=== PATIENT | female | born 1990 | race Caucasian/White ===

== ENCOUNTER 2020-06-01 15:30 | Inpatient (IN) ==
[2020-06-01] MEDS ORDERED: ONDANSETRON 4 MG/2 ML VIAL IV STA (16:21)
[2020-06-01] MEDS ORDERED: SODIUM CHLORIDE 0.9% 1,000 ML IV STA ×2 (16:21→18:04)
[2020-06-01] MEDS ORDERED: MORPHINE 4 MG/1 ML VIAL IV STA ×2 (16:21→17:40)
[2020-06-01 16:30] LABS: Hematocrit 22.9 VOL% (35.7-47.0); Hemoglobin 7.7 GM/DL (12.0-16.0); Immature Granulocytes % 0.4 %; Immature Granulocytes Absolute 0.01 #; Lymphocytes # 1.4 10*3/uL (1.4-4.0); Lymphocytes % 61.6 % (21.3-54.2); Mean Corpuscular HGB Conc 33.6 GM/DL (32-36); Mean Corpuscular Volume 90.9 FL (87-102); Mean Platelet Volume 9.6 FL (9.6-12.0); Red Blood Count 2.52 MC/CUMM (3.8-5.5); Red Cell Distribution Width 16.9 % (9.3-17.3); White Blood Count 2.2 T/CUMM (4-12)
[2020-06-01 16:32] LABS: Platelet Count 34 T/CUMM (130-400)
[2020-06-01 16:38] LABS: PT Patient Result 10.7 SECS (9.8-11.9); Partial Thromboplastin Time 27.1 SECS (23.9-33.8)
[2020-06-01 16:40] LABS: Albumin 3.6 G/DL (3.4-5.0); Bilirubin,Total 1.4 MG/DL (0.2-1.0); Calcium 8.9 MG/DL (8.5-10.1); Osmolality,Calculated 267.2 MOS/KG (273-304); Total Protein 7.3 G/DL (6.4-8.3)
[2020-06-01] MEDS ORDERED: cefTRIAXone 1,000 MG in SODIUM CHLORIDE 0.9% 100 ML IV STA (17:40)
[2020-06-01 18:07] LABS: Apearance,Urine CLEAR (Clear); Bacteria,Urine Occasional /HPF (Few); Bilirubin,Urine Negative (Negative); Blood, Urine Negative (Negative); Glucose,Urine (UA) Negative (Negative); Ketones,Urine Negative (Negative); Mucus,Urine Occasional /LPF (Occasional); Nitrite,Urine Negative (Negative); Protein,Urine Negative; RBC,Urine 1 /HPF (0-4); Squamous Epithelial Cell,Urine Occasional /HPF (0-10); Urine Color Yellow (Yellow); Urine Specific Gravity 1.013 (1.001-1.035); Urine Urobilinogen < 2.0 EU/DL (0.2-1.0); WBC,Urine 2 /HPF (0-6)
[2020-06-01 18:13] LABS: Barbiturates Screen,Urine Positive (Negative); Benzodiazepines Screen,Urine Negative (Negative); Cannabinoid Screen,Urine Negative (Negative); Opiate Screen,Urine Positive (Negative); Phencyclidine Screen,Urine Negative (Negative)
[2020-06-01 19:22] LABS: Hypochromasia 2+; Lymphocytes 72 % (20-55); Segmented Neutrophils 4 % (50-85); Total Cells Counted 100
[2020-06-01 19:23] LABS: Platelet Estimate Decreased; Poikilocytosis 2+
[2020-06-01] MEDS ORDERED: HYDROmorphone 2 MG/1 ML VIAL IV STA (20:01)
[2020-06-01] MEDS ORDERED: DEXTROSE 50% 25 GM/50 ML VIAL IV PRN (20:33)
[2020-06-01] MEDS ORDERED: PROMETHAZINE 25 MG TABLET PO PRN (20:33)
[2020-06-01] MEDS ORDERED: GLUCAGON 1 MG VIAL IM PRN (20:33)
[2020-06-01] MEDS ORDERED: SODIUM CHLORIDE 0.9% 1,000 ML IV PRN (20:37)
[2020-06-01] MEDS ORDERED: VANCOMYCIN INJ 1,000 MG in SODIUM CHLORIDE 0.9% 250 ML IV ONE (21:30)
[2020-06-01] MEDS ORDERED: CEFEPIME 1,000 MG VIAL ONE (21:51)
[2020-06-01] MEDS ORDERED: VANCOMYCIN 1,000 MG VIAL ONE (21:53)
[2020-06-01] MEDS: CEFEPIME 1,000 MG in SODIUM CHLORIDE 0.9% 100 ML IV SCH (22:10)
[2020-06-02] MEDS: HYDROmorphone 2 MG/1 ML VIAL IV PRN ×6 (00:04→21:33)
[2020-06-02] MEDS: SODIUM CHLORIDE 0.9% 1,000 ML IV SCH ×4 (00:05→22:19)
[2020-06-02] MEDS: ONDANSETRON 4 MG/2 ML VIAL IV PRN ×2 (00:52→16:38)
[2020-06-02] MEDS: CEFEPIME 1,000 MG in SODIUM CHLORIDE 0.9% 100 ML IV SCH ×4 (05:17→21:31)
[2020-06-02 07:44] LABS: Albumin 2.6 G/DL (3.4-5.0); Bilirubin,Total 1.2 MG/DL (0.2-1.0); Calcium 7.2 MG/DL (8.5-10.1); Osmolality,Calculated 270.8 MOS/KG (273-304)
[2020-06-02] MEDS: PANTOPRAZOLE 40 MG TABLET PO SCH (08:15)
[2020-06-02 08:32] LABS: Hematocrit 22.4 VOL% (35.7-47.0); Hemoglobin 7.5 GM/DL (12.0-16.0); Immature Granulocytes % 1.9 %; Immature Granulocytes Absolute 0.04 #; Lymphocytes # 0.8 10*3/uL (1.4-4.0); Mean Corpuscular HGB Conc 33.5 GM/DL (32-36); Mean Corpuscular Volume 92.9 FL (87-102); Mean Platelet Volume 8.8 FL (9.6-12.0); Monocytes % 58.8 % (1.7-12.7); Neutrophils % 2.3 % (38.7-73.9); Red Blood Count 2.41 MC/CUMM (3.8-5.5); Red Cell Distribution Width 16.2 % (9.3-17.3); White Blood Count 2.1 T/CUMM (4-12)
[2020-06-02 08:40] LABS: Platelet Count 17 T/CUMM (130-400)
[2020-06-02 08:49] LABS: Albumin 2.9 G/DL (3.4-5.0); Bilirubin,Total 1.4 MG/DL (0.2-1.0); Calcium 8.1 MG/DL (8.5-10.1); Total Protein 6.2 G/DL (6.4-8.3)
[2020-06-02 08:57] LABS: Atypical Lymphocytes Few; Hypochromasia 1+; Lymphocytes 51 % (20-55); Microcytosis Slight; Platelet Estimate Decreased; Segmented Neutrophils 2 % (50-85); Total Cells Counted 100
[2020-06-02] MEDS ORDERED: KETOROLAC 30 MG/1 ML VIAL IV ONE (09:01)
[2020-06-02] MEDS ORDERED: SODIUM CHLORIDE 0.9% 1,000 ML IV PRN ×3 (09:02→19:51)
[2020-06-02] MEDS: VANCOMYCIN INJ 1,750 MG in SODIUM CHLORIDE 0.9% 500 ML IV SCH ×2 (09:21→23:15)
[2020-06-02] MEDS: allopurinoL 300 MG TABLET PO SCH (10:00)
[2020-06-02] MEDS: KETOROLAC 30 MG/1 ML VIAL IV PRN ×2 (16:12→21:32)
[2020-06-02 17:39] LABS: CKMB % 8.6 %
[2020-06-02 17:41] LABS: Troponin I 19.1 NG/ML (0.00-0.045)
[2020-06-02 19:32] LABS: Hematocrit 25.1 VOL% (35.7-47.0); Hemoglobin 8.4 GM/DL (12.0-16.0); Immature Granulocytes % 1.4 %; Immature Granulocytes Absolute 0.03 #; Lymphocytes # 0.7 10*3/uL (1.4-4.0); Lymphocytes % 31.8 % (21.3-54.2); Mean Corpuscular HGB Conc 33.5 GM/DL (32-36); Mean Corpuscular Volume 91.3 FL (87-102); Monocytes % 63.5 % (1.7-12.7); Neutrophils % 3.3 % (38.7-73.9); Red Blood Count 2.75 MC/CUMM (3.8-5.5); Red Cell Distribution Width 15.6 % (9.3-17.3); White Blood Count 2.1 T/CUMM (4-12)
[2020-06-02 19:35] LABS: Platelet Count 36 T/CUMM (130-400)
[2020-06-02 20:29] LABS: Lymphocytes 50 % (20-55); Platelet Estimate Decreased; Segmented Neutrophils 10 % (50-85); Total Cells Counted 100
[2020-06-02 20:30] LABS: Anisocytosis 1+; Ovalocytes Few; Smudge Cells Few
[2020-06-02] MEDS: ACYCLOVIR 200 MG CAPSULE PO SCH (21:32)
[2020-06-03] MEDS: SODIUM CHLORIDE 0.9% 1,000 ML IV SCH ×3 (00:11→18:50)
[2020-06-03] MEDS: HYDROmorphone 2 MG/1 ML VIAL IV PRN ×4 (02:45→20:17)
[2020-06-03] MEDS: KETOROLAC 30 MG/1 ML VIAL IV PRN ×4 (02:45→20:17)
[2020-06-03 03:58] LABS: Hematocrit 27.8 VOL% (35.7-47.0); Hemoglobin 9.6 GM/DL (12.0-16.0); Immature Granulocytes % 2.2 %; Immature Granulocytes Absolute 0.04 #; Lymphocytes # 0.7 10*3/uL (1.4-4.0); Lymphocytes % 35.9 % (21.3-54.2); Mean Corpuscular HGB Conc 34.5 GM/DL (32-36); Mean Corpuscular Volume 88.5 FL (87-102); Mean Platelet Volume 11.2 FL (9.6-12.0); Monocytes % 58.7 % (1.7-12.7); Neutrophils % 3.2 % (38.7-73.9); Red Blood Count 3.14 MC/CUMM (3.8-5.5); Red Cell Distribution Width 16.1 % (9.3-17.3); White Blood Count 1.8 T/CUMM (4-12)
[2020-06-03] MEDS: CEFEPIME 1,000 MG in SODIUM CHLORIDE 0.9% 100 ML IV SCH ×2 (04:15→09:48)
[2020-06-03 04:32] LABS: Albumin 2.5 G/DL (3.4-5.0); Bilirubin,Total 1.1 MG/DL (0.2-1.0); Calcium 7.6 MG/DL (8.5-10.1); Osmolality,Calculated 272.8 MOS/KG (273-304); Total Protein 5.6 G/DL (6.4-8.3)
[2020-06-03 04:34] LABS: CKMB % 4.3 %
[2020-06-03 04:36] LABS: Troponin I 4.93 NG/ML (0.00-0.045)
[2020-06-03 04:42] LABS: Platelet Count 29 T/CUMM (130-400)
[2020-06-03 04:50] LABS: Lymphocytes 38 % (20-55); Platelet Estimate Decreased; Segmented Neutrophils 3 % (50-85); Total Cells Counted 100
[2020-06-03 04:51] LABS: Atypical Lymphocytes Few
[2020-06-03] MEDS: allopurinoL 300 MG TABLET PO SCH (08:19)
[2020-06-03] MEDS: METOPROLOL TARTRATE 25 MG TABLET PO SCH ×2 (08:19→20:17)
[2020-06-03] MEDS: ACYCLOVIR 200 MG CAPSULE PO SCH ×2 (08:20→20:18)
[2020-06-03] MEDS: PANTOPRAZOLE 40 MG TABLET PO SCH (08:20)
[2020-06-03] MEDS: POSACONAZOLE 300 MG PO SCH (08:21)
[2020-06-03] MEDS ORDERED: MAGNESIUM SULF RIDER 2 GM in PREMIX 1 EACH IV ONE (10:02)
[2020-06-03] MEDS ORDERED: POTASSIUM CHLORIDE 20 MEQ TABLET PO ONE (10:02)
[2020-06-03] MEDS ORDERED: NOREPINEPHRINE 8 MG in SODIUM CHLORIDE 0.9% 242 ML IV PRN (10:10)
[2020-06-03] MEDS: MEROPENEM 500 MG in SODIUM CHLORIDE 0.9% 100 ML IV SCH ×3 (10:29→22:45)
[2020-06-03] MEDS: VANCOMYCIN INJ 1,750 MG in SODIUM CHLORIDE 0.9% 500 ML IV SCH ×2 (10:40→21:45)
[2020-06-03] MEDS: DOCOSANOL 10% CREAM 2 GM TUBE TOP SCH ×3 (14:46→21:14)
[2020-06-03] MEDS: VANCOMYCIN INJ 2,000 MG in SODIUM CHLORIDE 0.9% 500 ML IV SCH (23:18)
[2020-06-04] MEDS: HYDROmorphone 2 MG/1 ML VIAL IV PRN ×4 (01:44→21:10)
[2020-06-04] MEDS: KETOROLAC 30 MG/1 ML VIAL IV PRN ×4 (01:45→21:09)
[2020-06-04 04:46] LABS: Hematocrit 26.3 VOL% (35.7-47.0); Hemoglobin 8.8 GM/DL (12.0-16.0); Lymphocytes # 0.5 10*3/uL (1.4-4.0); Lymphocytes % 38.1 % (21.3-54.2); Mean Corpuscular HGB Conc 33.5 GM/DL (32-36); Mean Corpuscular Volume 89.8 FL (87-102); Neutrophils % 7.9 % (38.7-73.9); Red Blood Count 2.93 MC/CUMM (3.8-5.5); Red Cell Distribution Width 16.5 % (9.3-17.3); White Blood Count 1.4 T/CUMM (4-12)
[2020-06-04 04:49] LABS: Platelet Count 21 T/CUMM (130-400)
[2020-06-04] MEDS ORDERED: SODIUM CHLORIDE 0.9% 1,000 ML IV PRN ×3 (05:10→12:10)
[2020-06-04 05:18] LABS: Albumin 2.1 G/DL (3.4-5.0); Bilirubin,Total 1.4 MG/DL (0.2-1.0); Calcium 7.2 MG/DL (8.5-10.1); Osmolality,Calculated 273.7 MOS/KG (273-304); Total Protein 5.2 G/DL (6.4-8.3)
[2020-06-04] MEDS: SODIUM CHLORIDE 0.9% 1,000 ML IV SCH ×4 (05:23→21:18)
[2020-06-04 05:37] LABS: Lymphocytes 44 % (20-55); Nucleated Red Blood Cells 1 (0-5); Segmented Neutrophils 8 % (50-85); Total Cells Counted 100
[2020-06-04 05:38] LABS: Hypochromasia 1+
[2020-06-04 05:39] LABS: Anisocytosis 1+; Atypical Lymphocytes Few; Microcytosis 1+; Platelet Estimate Decreased
[2020-06-04] MEDS: MEROPENEM 500 MG in SODIUM CHLORIDE 0.9% 100 ML IV SCH ×3 (05:40→16:41)
[2020-06-04] MEDS: DOCOSANOL 10% CREAM 2 GM TUBE TOP SCH ×5 (05:53→23:06)
[2020-06-04] MEDS: allopurinoL 300 MG TABLET PO SCH (08:39)
[2020-06-04] MEDS: PANTOPRAZOLE 40 MG TABLET PO SCH (08:39)
[2020-06-04] MEDS: ACYCLOVIR 200 MG CAPSULE PO SCH (08:39)
[2020-06-04] MEDS: METOPROLOL TARTRATE 25 MG TABLET PO SCH ×2 (08:39→21:12)
[2020-06-04] MEDS: POSACONAZOLE 300 MG PO SCH (08:46)
[2020-06-04 10:04] LABS: Hematocrit 28.3 VOL% (35.7-47.0); Hemoglobin 9.5 GM/DL (12.0-16.0)
[2020-06-04] MEDS: VANCOMYCIN INJ 2,000 MG in SODIUM CHLORIDE 0.9% 500 ML IV SCH ×2 (10:06→23:07)
[2020-06-04] MEDS ORDERED: FUROSEMIDE 40 MG/4 ML VIAL IV ONE (11:04)
[2020-06-04 13:02] LABS: Apearance,Urine CLEAR (Clear); Bacteria,Urine Occasional /HPF (Few); Bilirubin,Urine Negative (Negative); Blood, Urine Moderate mg/dL (Negative); Glucose,Urine (UA) Negative (Negative); Ketones,Urine Negative (Negative); Mucus,Urine Occasional /LPF (Occasional); Nitrite,Urine Negative (Negative); Protein,Urine Negative; RBC,Urine 4 /HPF (0-4); Squamous Epithelial Cell,Urine Occasional /HPF (0-10); Urine Color Straw (Yellow); Urine Specific Gravity 1.003 (1.001-1.035); Urine Urobilinogen < 2.0 EU/DL (0.2-1.0); WBC,Urine 1 /HPF (0-6)
[2020-06-04] MEDS: ACYCLOVIR INJ 750 MG in SODIUM CHLORIDE 0.9% 250 ML IV SCH ×2 (13:20→21:21)
[2020-06-04] MEDS ORDERED: ACETAMINOPHEN 325 MG TABLET ONE (15:47)
[2020-06-04] MEDS: MICAFUNGIN 100 MG in SODIUM CHLORIDE 0.9% 100 ML IV SCH (15:50)
[2020-06-04] MEDS: ACETAMINOPHEN 325 MG TABLET PO PRN (15:50)
[2020-06-04] MEDS ORDERED: chlorproMAZINE INJ 50 MG in SODIUM CHLORIDE 0.9% 100 ML IV PRN (19:54)
[2020-06-04] MEDS ORDERED: guaiFENesin 200 MG/10 ML UDCUP PO PRN (19:54)
[2020-06-04] MEDS ORDERED: ALPRAZolam 0.25 MG TABLET PO PRN (19:54)
[2020-06-04] MEDS ORDERED: MAGNESIUM HYDROXIDE SUSP 30 ML UDCUP PO PRN (19:54)
[2020-06-04] MEDS ORDERED: diphenhydrAMINE CAP 25 MG CAPSULE PO PRN (19:54)
[2020-06-04] MEDS ORDERED: chlorproMAZINE INJ 25 MG in SODIUM CHLORIDE 0.9% 100 ML IV PRN (19:54)
[2020-06-04] MEDS ORDERED: ONDANSETRON 4 MG/2 ML VIAL IV PRN (19:54)
[2020-06-04] MEDS ORDERED: MYLANTA/LIDO VISC 2:1 300 ML BOTTLE SWISH/SPIT PRN (19:54)
[2020-06-04] MEDS ORDERED: ALUMINUM/MAGNES/SIMETH MAX STR 30 ML UDCUP PO PRN (19:54)
[2020-06-04] MEDS ORDERED: LOPERAMIDE 2 MG CAPSULE PO PRN ×2 (19:54)
[2020-06-04] MEDS ORDERED: PROMETHAZINE INJ 25 MG in SODIUM CHLORIDE 0.9% 50 ML IV PRN (19:54)
[2020-06-04] MEDS ORDERED: LACTULOSE 20 GM/30 ML UDCUP PO PRN (19:54)
[2020-06-04] MEDS ORDERED: TEMAZEPAM 7.5 MG CAPSULE PO PRN (19:54)
[2020-06-04 21:11] LABS: Albumin 2.4 G/DL (3.4-5.0); Bilirubin,Total 1.5 MG/DL (0.2-1.0); Calcium 7.7 MG/DL (8.5-10.1); Osmolality,Calculated 273.7 MOS/KG (273-304); Total Protein 5.9 G/DL (6.4-8.3)
[2020-06-05] MEDS: MEROPENEM 500 MG in SODIUM CHLORIDE 0.9% 100 ML IV SCH ×5 (00:14→22:54)
[2020-06-05 01:11] LABS: Hemoglobin 10.3 GM/DL (12.0-16.0)
[2020-06-05] MEDS: HYDROmorphone 2 MG/1 ML VIAL IV PRN ×6 (01:21→22:49)
[2020-06-05] MEDS: ACETAMINOPHEN 325 MG TABLET PO PRN ×5 (01:28→19:12)
[2020-06-05] MEDS: KETOROLAC 30 MG/1 ML VIAL IV PRN ×2 (03:09→09:10)
[2020-06-05 04:46] LABS: Hematocrit 30.7 VOL% (35.7-47.0); Hemoglobin 10.3 GM/DL (12.0-16.0); Immature Granulocytes % 4.2 %; Immature Granulocytes Absolute 0.05 #; Lymphocytes # 0.5 10*3/uL (1.4-4.0); Lymphocytes % 43.3 % (21.3-54.2); Mean Corpuscular HGB Conc 33.6 GM/DL (32-36); Mean Corpuscular Volume 88.5 FL (87-102); Mean Platelet Volume 11.8 FL (9.6-12.0); Monocytes % 47.5 % (1.7-12.7); Red Blood Count 3.47 MC/CUMM (3.8-5.5); Red Cell Distribution Width 16.8 % (9.3-17.3); White Blood Count 1.2 T/CUMM (4-12)
[2020-06-05 04:48] LABS: Platelet Count 17 T/CUMM (130-400)
[2020-06-05] MEDS: SODIUM CHLORIDE 0.9% 1,000 ML IV SCH ×3 (05:03→19:14)
[2020-06-05] MEDS: ACYCLOVIR INJ 750 MG in SODIUM CHLORIDE 0.9% 250 ML IV SCH ×3 (05:19→20:48)
[2020-06-05 05:26] LABS: Calcium 7.3 MG/DL (8.5-10.1); Osmolality,Calculated 274.7 MOS/KG (273-304)
[2020-06-05 05:40] LABS: Hypochromasia Slight; Lymphocytes 54 % (20-55); Microcytosis Slight; Nucleated Red Blood Cells 2 (0-5); Platelet Estimate Decreased; Segmented Neutrophils 4 % (50-85); Total Cells Counted 100
[2020-06-05] MEDS: DOCOSANOL 10% CREAM 2 GM TUBE TOP SCH ×5 (06:34→22:00)
[2020-06-05] MEDS: PANTOPRAZOLE 40 MG TABLET PO SCH (08:06)
[2020-06-05] MEDS: METOPROLOL TARTRATE 25 MG TABLET PO SCH ×2 (08:06→20:44)
[2020-06-05] MEDS: allopurinoL 300 MG TABLET PO SCH (08:06)
[2020-06-05] MEDS: VANCOMYCIN INJ 2,000 MG in SODIUM CHLORIDE 0.9% 500 ML IV SCH (13:01)
[2020-06-05] MEDS: VANCOMYCIN INJ 1,500 MG in SODIUM CHLORIDE 0.9% 500 ML IV SCH ×2 (13:16→23:50)
[2020-06-05] MEDS ORDERED: POTASSIUM CHLORIDE 20 MEQ TABLET PO ONE (13:44)
[2020-06-05] MEDS: DOCUSATE SODIUM 100 MG CAPSULE PO SCH ×2 (14:13→20:43)
[2020-06-05] MEDS: POLYETHYLENE GLYCOL POWDER 17 GM PACK PO SCH ×2 (14:13→20:57)
[2020-06-05] MEDS: MICAFUNGIN 100 MG in SODIUM CHLORIDE 0.9% 100 ML IV SCH (15:23)
[2020-06-05] MEDS: MYLANTA/LIDO VISC 2:1 300 ML BOTTLE SWISH/SWAL PRN ×2 (16:46→22:46)
[2020-06-05] MEDS: LACTULOSE 20 GM/30 ML UDCUP PO SCH (20:57)
[2020-06-06] MEDS: ACETAMINOPHEN 325 MG TABLET PO PRN ×2 (02:29→11:09)
[2020-06-06] MEDS: HYDROmorphone 2 MG/1 ML VIAL IV PRN ×4 (03:30→14:30)
[2020-06-06] MEDS: SODIUM CHLORIDE 0.9% 1,000 ML IV SCH (03:40)
[2020-06-06] MEDS: MEROPENEM 500 MG in SODIUM CHLORIDE 0.9% 100 ML IV SCH ×2 (04:00→11:03)
[2020-06-06] MEDS: ACYCLOVIR INJ 750 MG in SODIUM CHLORIDE 0.9% 250 ML IV SCH (05:12)
[2020-06-06] MEDS: DOCOSANOL 10% CREAM 2 GM TUBE TOP SCH ×3 (06:16→14:40)
[2020-06-06] MEDS: VANCOMYCIN INJ 1,500 MG in SODIUM CHLORIDE 0.9% 500 ML IV SCH (06:16)
[2020-06-06] MEDS: MYLANTA/LIDO VISC 2:1 300 ML BOTTLE SWISH/SWAL PRN (07:26)
[2020-06-06 08:03] LABS: Hematocrit 29.5 VOL% (35.7-47.0); Hemoglobin 9.7 GM/DL (12.0-16.0); Immature Granulocytes % 5.3 %; Immature Granulocytes Absolute 0.06 #; Lymphocytes # 0.7 10*3/uL (1.4-4.0); Lymphocytes % 61.9 % (21.3-54.2); Mean Corpuscular HGB Conc 32.9 GM/DL (32-36); Mean Corpuscular Volume 89.9 FL (87-102); Mean Platelet Volume 11.1 FL (9.6-12.0); Monocytes % 25.7 % (1.7-12.7); Neutrophils % 7.1 % (38.7-73.9); Red Blood Count 3.28 MC/CUMM (3.8-5.5); Red Cell Distribution Width 16.8 % (9.3-17.3); White Blood Count 1.1 T/CUMM (4-12)
[2020-06-06] MEDS: METOPROLOL TARTRATE 25 MG TABLET PO SCH (08:25)
[2020-06-06] MEDS: allopurinoL 300 MG TABLET PO SCH (08:25)
[2020-06-06] MEDS: PANTOPRAZOLE 40 MG TABLET PO SCH (08:25)
[2020-06-06] MEDS: DOCUSATE SODIUM 100 MG CAPSULE PO SCH (08:25)
[2020-06-06] MEDS: LINACLOTIDE 145 MCG CAPSULE PO SCH ×2 (08:25→08:35)
[2020-06-06 08:31] LABS: Platelet Count 21 T/CUMM (130-400)
[2020-06-06] MEDS: LACTULOSE 20 GM/30 ML UDCUP PO SCH (08:35)
[2020-06-06] MEDS: POLYETHYLENE GLYCOL POWDER 17 GM PACK PO SCH (08:35)
[2020-06-06 08:53] LABS: Calcium 7.3 MG/DL (8.5-10.1); Osmolality,Calculated 273.5 MOS/KG (273-304)
[2020-06-06 08:59] LABS: Folate 10.9 NG/ML (5.4-24.0)
[2020-06-06] MEDS ORDERED: POTASSIUM CHLORIDE 20 MEQ TABLET PO ONE (09:17)
[2020-06-06 09:55] LABS: Atypical Lymphocytes Few; Band Neutrophils 1 % (0-10); Hypochromasia Slight; Lymphocytes 65 % (20-55); Microcytosis 1+; Platelet Estimate Decreased; Segmented Neutrophils 10 % (50-85); Total Cells Counted 100
[2020-06-06] MEDS ORDERED: ALTEPLASE 2 MG VIAL IV ONE (10:57)
[2020-06-06] MEDS ORDERED: fentaNYL 12 MCG/HR PATCH TRANSDERM SCH (11:30)
[2020-06-06 12:01] VITALS: BP 138/85
[2020-06-06 12:27] LABS: HIV Antigen/Antibody Result Nonreactive (Nonreactive); Hepatitis B Core IgM Quant 0.22 Index; Hepatitis B Surface Ag Quant < 0.10 Index; Hepatitis B Surface Ag Result Negative (Negative); Hepatitis C Virus Ab Quant 0.07 Index; Hepatitis C Virus Ab Result Negative (Negative)
[2020-06-06] MEDS ORDERED: OXYMETAZOLINE 0.05% NASAL SPRAY 15 ML BOTTLE BOTH NARES PRN (13:17)
[2020-06-06] MEDS ORDERED: DOXYCYCLINE HYCLATE INJ 100 MG in SODIUM CHLORIDE 0.9% 100 ML IV SCH (14:00)
[2020-06-10 12:51] LABS: Toxoplasma IgG Value < 3 IU/mL
[2020-06-10 23:11] LABS: QuantiFERON-Tb Gold Pl Negative (Negative)
[2020-06-11 05:25] LABS: Antinuclear Ab, S 0.3 U
== END 2020-06-06 14:55 | disposition hospice, home (50) | DRG 834 ==
LOC: N.ED 15:30 → N.EDINP 20:32 → SUPCPDRO 20:32 → SUATTDRO 20:32 → N.4E 21:45 → N.ICU 06-02 18:42 → N.4E 06-04 17:37
PROVIDERS: ADMIT Internal Medicine; ATTEND Hospitalist

== ENCOUNTER 2021-03-01 19:47 | Observation (INO) ==
[2021-03-01] MEDS ORDERED: SODIUM CHLORIDE 0.9% 1,000 ML IV STA ×2 (20:20→22:04)
[2021-03-01] MEDS ORDERED: ONDANSETRON 4 MG/2 ML VIAL IV ONE (20:22)
[2021-03-01 20:49] LABS: Basophils % 0.1 % (0.0-0.8); Eosinophils # 0.1 10*3/uL (0.0-0.87); Eosinophils % 0.4 % (0.00-10.9); Hematocrit 32.9 VOL% (35.7-47.0); Hemoglobin 11.3 GM/DL (12.0-16.0); Immature Granulocytes % 0.4 %; Immature Granulocytes Absolute 0.06 #; Lymphocytes # 2.3 10*3/uL (1.4-4.0); Lymphocytes % 16.6 % (21.3-54.2); Mean Corpuscular HGB Conc 34.3 GM/DL (32-36); Mean Platelet Volume 9.4 FL (9.6-12.0); Monocytes % 8.4 % (1.7-12.7); Neutrophils % 74.1 % (38.7-73.9); Platelet Count 167 T/CUMM (130-400); Red Cell Distribution Width 14.3 % (9.3-17.3); White Blood Count 13.9 T/CUMM (4-12)
[2021-03-01 20:55] LABS: Bilirubin,Urine Negative (Negative); Blood, Urine Small mg/dL (Negative); Glucose,Urine (UA) Negative (Negative); Ketones,Urine Negative (Negative); Mucus,Urine Occasional /LPF (Occasional); Nitrite,Urine Negative (Negative); Protein,Urine 30 MG/DL; RBC,Urine 3 /HPF (0-4); Squamous Epithelial Cell,Urine Occasional /HPF (0-10); Urine Appearance CLEAR (Clear); Urine Color Yellow (Yellow); Urine Specific Gravity 1.009 (1.001-1.035); Urine Urobilinogen < 2.0 EU/DL (0.2-1.0)
[2021-03-01] MEDS ORDERED: IBUPROFEN 800 MG TABLET PO STA (20:59)
[2021-03-01 21:10] LABS: Albumin 3.5 G/DL (3.4-5.0); Bilirubin,Total 0.8 MG/DL (0.2-1.0); Calcium 9.7 MG/DL (8.5-10.1); Osmolality,Calculated 263.4 MOS/KG (273-304); Potassium 3.9 MMOL/L (3.5-5.1); Total Protein 7.8 G/DL (6.4-8.2)
[2021-03-01] MEDS ORDERED: cefTRIAXone 1,000 MG in SODIUM CHLORIDE 0.9% 100 ML IV STA (21:40)
[2021-03-01] MEDS ORDERED: MORPHINE 4 MG/1 ML VIAL IV STA (21:41)
[2021-03-01] MEDS ORDERED: DEXTROSE 50% 25 GM/50 ML VIAL IV PRN (22:43)
[2021-03-01] MEDS ORDERED: DOCUSATE SODIUM 100 MG CAPSULE PO PRN (22:43)
[2021-03-01] MEDS ORDERED: GLUCAGON 1 MG VIAL IM PRN (22:43)
[2021-03-02] MEDS: AZITHROMYCIN INJ 500 MG in SODIUM CHLORIDE 0.9% 250 ML IV SCH ×2 (00:24→23:08)
[2021-03-02] MEDS: ONDANSETRON 4 MG/2 ML VIAL IV PRN ×4 (00:38→20:34)
[2021-03-02] MEDS ORDERED: PROMETHAZINE 25 MG TABLET PO PRN (00:59)
[2021-03-02] MEDS ORDERED: LORazepam 1 MG TABLET PO PRN (01:01)
[2021-03-02 05:49] LABS: Basophils % 0.1 % (0.0-0.8); Eosinophils # 0.1 10*3/uL (0.0-0.87); Eosinophils % 1.6 % (0.00-10.9); Hematocrit 27.1 VOL% (35.7-47.0); Immature Granulocytes % 0.5 %; Immature Granulocytes Absolute 0.04 #; Lymphocytes # 1.8 10*3/uL (1.4-4.0); Lymphocytes % 24.1 % (21.3-54.2); Mean Corpuscular HGB Conc 33.2 GM/DL (32-36); Mean Corpuscular Volume 96.4 FL (87-102); Mean Platelet Volume 9.6 FL (9.6-12.0); Monocytes % 10.7 % (1.7-12.7); Platelet Count 135 T/CUMM (130-400); Red Blood Count 2.81 MC/CUMM (3.8-5.5); Red Cell Distribution Width 14.6 % (9.3-17.3)
[2021-03-02 05:54] LABS: White Blood Count 7.6 T/CUMM (4-12)
[2021-03-02 06:01] LABS: Albumin 2.6 G/DL (3.4-5.0); Bilirubin,Total 0.6 MG/DL (0.2-1.0); Calcium 8.9 MG/DL (8.5-10.1); Osmolality,Calculated 272.7 MOS/KG (273-304); Potassium 4.5 MMOL/L (3.5-5.1)
[2021-03-02 06:07] LABS: Hypochromasia Slight; Microcytosis 1+; Platelet Estimate Adequate
[2021-03-02] MEDS: CETIRIZINE 10 MG TABLET PO SCH (08:48)
[2021-03-02] MEDS: ACYCLOVIR 200 MG CAPSULE PO SCH (08:48)
[2021-03-02] MEDS: [UNRECOGNIZED DRUG - OTHER] PO SCH (09:06)
[2021-03-02] MEDS: ALBUTEROL/IPRATROPIUM 3 ML NEB RESP TX SCH ×2 (18:01→19:20)
[2021-03-02] MEDS ORDERED: traMADol 50 MG TABLET PO PRN (20:17)
[2021-03-02] MEDS ORDERED: cefTRIAXone 2,000 MG in SODIUM CHLORIDE 0.9% 100 ML IV SCH (21:30)
[2021-03-03] MEDS: ALBUTEROL/IPRATROPIUM 3 ML NEB RESP TX SCH ×3 (00:51→13:32)
[2021-03-03] MEDS: ONDANSETRON 4 MG/2 ML VIAL IV PRN ×2 (03:21→17:09)
[2021-03-03 05:31] LABS: Basophils % 0.2 % (0.0-0.8); Eosinophils # 0.1 10*3/uL (0.0-0.87); Eosinophils % 1.1 % (0.00-10.9); Hematocrit 26.4 VOL% (35.7-47.0); Immature Granulocytes % 0.5 %; Immature Granulocytes Absolute 0.03 #; Lymphocytes # 1.4 10*3/uL (1.4-4.0); Lymphocytes % 21.6 % (21.3-54.2); Mean Corpuscular HGB Conc 34.1 GM/DL (32-36); Mean Corpuscular Volume 93.6 FL (87-102); Mean Platelet Volume 9.3 FL (9.6-12.0); Monocytes % 10.6 % (1.7-12.7); Platelet Count 127 T/CUMM (130-400); Red Blood Count 2.82 MC/CUMM (3.8-5.5); Red Cell Distribution Width 14.1 % (9.3-17.3); White Blood Count 6.6 T/CUMM (4-12)
[2021-03-03 06:06] LABS: Albumin 2.6 G/DL (3.4-5.0); Bilirubin,Total 1.6 MG/DL (0.2-1.0); Calcium 8.9 MG/DL (8.5-10.1); Osmolality,Calculated 272.7 MOS/KG (273-304); Potassium 3.7 MMOL/L (3.5-5.1); Total Protein 6.3 G/DL (6.4-8.2)
[2021-03-03] MEDS: [UNRECOGNIZED DRUG - OTHER] PO SCH (09:18)
[2021-03-03 16:22] VITALS: BP 85/55
[2021-03-03] MEDS: ACYCLOVIR 200 MG CAPSULE PO SCH (17:12)
[2021-03-03] MEDS: CETIRIZINE 10 MG TABLET PO SCH (17:12)
== END 2021-03-03 18:42 | disposition home or self-care (01) ==
LOC: N.EDINP 19:47 → N.ED 19:47 → N.EDINP 23:18 → N.3E 23:43
PROVIDERS: ADMIT Internal Medicine; ATTEND Internal Medicine